=== PATIENT | female | born 1975 | race African-American/Black ===

== ENCOUNTER 2017-06-26 11:32 | Emergency (ER) | payer OTHER ==
[~2017-06-26] VITALS: Ht 172.7 cm; Wt 105.2 kg
[~2017-06-26 11:32] MED LIST: GLYB5TAB3 PO; INSU100C4 SQ; INSU100I13 SQ; INSU100I17 SQ; LISI10TA2 PO; METO-247 PO; PANT40TA3 PO; PHEN100C PO; PRED20TA PO
[2017-06-26] MEDS ORDERED: IPRATRPIUM/ALBUTEROL 0.5/2.5MG 3 ML NEBU. NEB ONE ×2 (11:45→12:15)
[2017-06-26 11:50] VITALS: BP 157/106
[2017-06-26] MEDS ORDERED: METO-313 PO (12:03)
[2017-06-26] MEDS ORDERED: PRED50TA PO (12:03)
[2017-06-26] MEDS ORDERED: LISI10TA2 PO (12:03)
[2017-06-26] MEDS ORDERED: CODE10LI PO (12:03)
--- NOTE | 2017-06-26 12:26 | PHYS DOC ---
Past Medical History Past Medical History: Anxiety, Asthma, Depression, Diabetes-Type I, High Cholesterol, Hypertension, Other Additional Past Medical Histor: PTSD, PANIC ATTACKS, vertigo Past Surgical History: Other Additional Past Surgical Histo: DNC Alcohol Use: None Drug Use: None Adult General Chief Complaint Chief Complaint: ASTHMA HPI HPI Patient is a 42 year old female who presents with 2-3 days of sinus congestion , cough, patient was working outside yesterday when she had a coughing episode with posttussive emesis. Patient had increased use of her albuterol inhaler. No fevers. Patient states she needs work note so she does not work outside. Review of Systems Review of Systems Constitutional: Denies fever or chills [] Eyes: Denies change in visual acuity, redness, or eye pain [] HENT: per history of present illness Respiratory: per history of present illness Cardiovascular: denies cp GI: Denies abdominal pain, nausea, vomiting, bloody stools or diarrhea [] : Denies dysuria or hematuria [] Musculoskeletal: Denies back pain or joint pain [] Integument: Denies rash or skin lesions [] Neurologic: Denies headache, focal weakness or sensory changes [] All other systems were reviewed and found to be within normal limits, except as documented in this note. Current Medications Current Medications Current Medications Medications (Trade) Dose Ordered Sig/Lucille Start Time Stop Time Status Last Admin Dose Admin Albuterol/ Ipratropium (Duoneb) 3 ml 1X ONCE 06/26/17 12:15 06/26/17 12:16 DC Allergies Allergies Allergies Coded Allergies Type Severity Reaction Last Updated Verified Penicillins Allergy Severe tongue swells, hives 02/07/15 Yes ibuprofen Allergy Severe 09/07/15 Yes aspirin Adverse Reaction Intermediate GI bleeding 07/11/14 Yes Physical Exam Physical Exam Constitutional: Well developed, well nourished, no acute distress, non-toxic appearance. obese HENT: Normocephalic, atraumatic, bilateral external ears normal, oropharynx moist, no oral exudates, nose normal. [] Eyes: PERRLA, EOMI, conjunctiva normal, no discharge. [] Neck: Normal range of motion, no tenderness, supple, no stridor. [] Cardiovascular:Heart rate regular with regular rhythm, no murmur [] Lungs & Thorax: Bilateral breath sounds clear to auscultation , moderate air movement, no wheeze Abdomen: Bowel sounds normal, soft, no tenderness, no masses, no pulsatile masses. [] Skin: Warm, dry, no erythema, no rash. [] Back: No tenderness, no CVA tenderness. [] Extremities: No tenderness, no cyanosis, no clubbing, ROM intact, no edema. [] Neurologic: Alert and oriented X 3, normal motor function, normal sensory function, no focal deficits noted. [] Psychologic: Affect normal, judgement normal, mood normal. [] Current Patient Data Vital Signs Vital Signs Date Time Temp Pulse Resp B/P (MAP) Pulse Ox O2 Delivery O2 Flow Rate FiO2 06/26/17 12:02 Room Air 06/26/17 11:50 98.5 84 20 99 98.5 EKG EKG [] Radiology/Procedures Radiology/Procedures [] Course & Med Decision Making Course & Med Decision Making Pertinent Labs and Imaging studies reviewed. (See chart for details) pt given duoneb tx. Pt's bp elevated, states she's out of meds, no f/u appt until 07/12. RX for prednisone 5 days, refill bp meds, codeine/guaifensin rx givens. Dragon Disclaimer Trufflson Disclaimer This electronic medical record was generated, in whole or in part, using a voice recognition dictation system. Departure Departure Impression: Primary Impression: Upper respiratory infection Additional Impression: Asthma Disposition: 01 HOME, SELF-CARE Condition: STABLE Patient Instructions: Upper Respiratory Infection, Adult, Form - Return To Work , Hypertension Scripts Codeine Phosphate/Guaifenesin (Guaifen-Codeine 200-20 mg/10Ml) 10 Ml Liquid 10 ML PO PRN Q6HRS Y for COUGH, #200 LIQUID Prov: MARYURI JIANG MD 06/26/17 Lisinopril (LISINOPRIL) 10 Mg Tablet 1 TAB PO DAILY, #20 TAB 0 Refills Prov: MARYURI JIANG MD 06/26/17 Metoprolol Tartrate (Lopressor) 100 Mg Tablet 100 MG PO BID, #30 TAB Prov: MARYURI JIANG MD 06/26/17 Prednisone (PREDNISONE) 50 Mg Tablet 1 TAB PO DAILY, #5 TAB Prov: MARYURI JIANG MD 06/26/17 Problem Qualifiers MARYURI JIANG MD Jun 26, 2017 12:26
== END 2017-06-26 12:15 | disposition home or self-care (01) ==
LOC: ER 11:32
DX: J06.9 Acute upper respiratory infection, unspecified (principal); J45.909 Unspecified asthma, uncomplicated; F41.0 Panic disorder [episodic paroxysmal anxiety]; F32.9 Major depressive disorder, single episode, unspecified; E10.9 Type 1 diabetes mellitus without complications; E78.00 Pure hypercholesterolemia, unspecified; I10 Essential (primary) hypertension; F43.10 Post-traumatic stress disorder, unspecified; Z88.0 Allergy status to penicillin; Z79.899 Other long term (current) drug therapy; Z88.6 Allergy status to analgesic agent
CPT/HCPCS: 94250; 94640; 99283; J7620

== ENCOUNTER 2017-12-04 02:19 | Emergency (ER) | payer OTHER | END 2017-12-04 03:50 | disposition home or self-care (01) | LOC: ER 02:19 | DX: S50.02XA Contusion of left elbow, initial encounter (principal); J45.909 Unspecified asthma, uncomplicated; I10 Essential (primary) hypertension; F43.10 Post-traumatic stress disorder, unspecified; E78.00 Pure hypercholesterolemia, unspecified; E10.9 Type 1 diabetes mellitus without complications; Z88.0 Allergy status to penicillin; Z88.6 Allergy status to analgesic agent; Z88.8 Allergy status to other drugs, medicaments and biological substances; W01.0XXA Fall on same level from slipping, tripping and stumbling without subsequent striking against object, initial encounter; Y93.89 Activity, other specified; Y99.8 Other external cause status; Y92.89 Other specified places as the place of occurrence of the external cause | CPT/HCPCS: 73080; 99284 ==

== ENCOUNTER 2018-04-28 14:09 | Emergency (ER) | payer OTHER ==
[~2018-04-28] VITALS: Ht 172.7 cm; Wt 101.2 kg
[~2018-04-28 14:09] MED LIST changes: +CODE10LI PO; +CYCL5TAB PO; +IBUP-1060 PO; +METO-313 PO; +NAPR-514 PO; +PENI500T PO; +PRED50TA PO
[2018-04-28 14:24] VITALS: BP 144/103
[2018-04-28] MEDS ORDERED: ALBUTEROL SULFATE 2.5 MG/3 ML NEBU. NEB ONE (14:45)
--- NOTE | 2018-04-28 15:11 | PHYS DOC ---
Past Medical History Past Medical History: No Pertinent History, Hypertension Additional Past Medical Histor: PTSD, PANIC ATTACKS, vertigo Past Surgical History: No Surgical History Additional Past Surgical Histo: DNC Alcohol Use: None Drug Use: None Adult General Chief Complaint Chief Complaint: HEADACHE HPI HPI Patient is a 43 year old female who presents to the ER with concerns of elevated blood pressure. PT states she was seen at in the ER one week ago and her metoprolol and lisinopril doses were increased. She has had a dull headache over her forehead all day today. She denies any vision changes, sensitivity to light, nausea, vomiting, or confusion. States she has had a cough , with nasal congestion, and a runny nose for the last week. She denies any fever or sore throat. Review of Systems Review of Systems Constitutional: Denies fever or chills [] Eyes: Denies change in visual acuity, redness, or eye pain [] HENT: reports nasal congestion, post nasal drainage, and scratchy, sore throat [ ] Respiratory: Denies shortness of breath; reports dry cough Cardiovascular: No additional information not addressed in HPI [] GI: Denies abdominal pain, nausea, vomiting, or diarrhea [] Musculoskeletal: Denies back pain or joint pain [] Integument: Denies rash or skin lesions [] Neurologic: Denies focal weakness or sensory changes; reports frontal headache described as pressure All other systems were reviewed and found to be within normal limits, except as documented in this note. Current Medications Current Medications Current Medications Medications (Trade) Dose Ordered Sig/Lucille Start Time Stop Time Status Last Admin Dose Admin Albuterol Sulfate (Ventolin Neb Soln) 2.5 mg 1X ONCE 04/28/18 14:45 04/28/18 14:46 DC 04/28/18 15:01 2.5 MG Allergies Allergies Allergies Coded Allergies Type Severity Reaction Last Updated Verified Penicillins Allergy Severe tongue swells, hives 02/07/15 Yes ibuprofen Allergy Severe 09/07/15 Yes aspirin Adverse Reaction Intermediate GI bleeding 07/11/14 Yes Physical Exam Physical Exam Constitutional: Well developed, well nourished, no acute distress, non-toxic appearance, obese. [] HENT: Normocephalic, atraumatic, bilateral external ears normal, bilateral TMs normal, oropharynx moist, no oral exudates, nasal turbinates erythematous and edematous, cobblestone appearance of posterior pharynx, no maxillary or frontal sinus tenderness Eyes: PERRLA, conjunctiva normal, no discharge. [] Neck: Normal range of motion, no tenderness, supple, no stridor. [] Cardiovascular:Heart rate regular rhythm, no murmur [] Lungs & Thorax: Bilateral breath sounds clear to auscultation, diminished in posterior bases bilat [] Skin: Warm, dry, no erythema, no rash. [] Extremities: No cyanosis, no clubbing, ROM intact, no edema. [] Neurologic: Alert and oriented X 3, normal motor function, normal sensory function, no focal deficits noted. [] Psychologic: Affect normal, judgement normal, mood normal. [] Current Patient Data Vital Signs Vital Signs Date Time Temp Pulse Resp B/P (MAP) Pulse Ox O2 Delivery O2 Flow Rate FiO2 04/28/18 15:02 99 Room Air 04/28/18 14:24 98.9 91 20 144/103 (117) 98.9 EKG EKG [] Radiology/Procedures Radiology/Procedures lung sounds improved and clear in all hodges after breathing tx[] Course & Med Decision Making Course & Med Decision Making Pertinent Labs and Imaging studies reviewed. (See chart for details) Dx: URI, allergic rhinitis, headache Prescriptions written for proair, tessalon perrles, and flonase. Follow up with PCP this week about blood pressure, continue meds as prescribed by [facility]. Avoid airway irritants. Patient verbalized an understanding of home care, medications , follow-up, and return to ED instructions and was in agreement with the plan of care. [] Dragon Disclaimer Dragon Disclaimer This electronic medical record was generated, in whole or in part, using a voice recognition dictation system. Departure Departure Impression: Primary Impression: Cough Additional Impressions: URI (upper respiratory infection) Allergic rhinitis Frontal headache Disposition: 01 HOME, SELF-CARE Condition: STABLE Referrals: ROCHELLE TREVINO MD (PCP) Patient Instructions: Headache and Allergies, Upper Respiratory Infection, Adult, [id number] Additional Instructions: Fill prescription(s) and use as directed. Cool mist humidifier in room at bedtime. Tylenol as needed for pain/fever. Increase clear fluids. Avoid triggers such as smoke, fragrance, dust, and pollen. Follow up with your primary care doctor as planned this week. Return to the ER if your symptoms worsen. Scripts Fluticasone Propionate (Flonase Allergy Relief) 9.9 Ml Sylva.susp 2 SPRAYS NS DAILY for 10 Days, #1 BOTTLE Prov: CHRIS POPE COMIC ILLUSTRATOR 04/28/18 Albuterol Sulfate (PROAIR HFA INHALER) 8.5 Gm Hfa.aer.ad 1-2 PUFF INH PRN Q6HRS PRN for SHORTNESS OF BREATH for 3 Days, #1 INHALER 1 Refill Prov: CHRIS POPE APRN 04/28/18 Benzonatate (TESSALON PERLE) 100 Mg Capsule 1 CAP PO TID, #21 CAP 0 Refills Prov: CHRIS POPE APRN 04/28/18 Problem Qualifiers Additional Impressions: URI (upper respiratory infection) URI type: unspecified URI Qualified Codes: J06.9 - Acute upper respiratory infection, unspecified Allergic rhinitis Allergic rhinitis trigger: unspecified Allergic rhinitis seasonality: unspecified Qualified Codes: J30.9 - Allergic rhinitis, unspecified CHRIS POPE COMIC ILLUSTRATOR Apr 28, 2018 15:11
[2018-04-28] MEDS ORDERED: FLUT9.9S NS (15:25)
[2018-04-28] MEDS ORDERED: BENZ100C PO (15:25)
[2018-04-28] MEDS ORDERED: PROAIR HFA8.5 GM INH (15:25)
== END 2018-04-28 15:35 | disposition home or self-care (01) ==
LOC: ER 14:09
DX: R51 Headache (principal); J30.9 Allergic rhinitis, unspecified; J06.9 Acute upper respiratory infection, unspecified; I10 Essential (primary) hypertension; F43.10 Post-traumatic stress disorder, unspecified; Z88.0 Allergy status to penicillin; Z88.6 Allergy status to analgesic agent; Z88.8 Allergy status to other drugs, medicaments and biological substances
CPT/HCPCS: 94640; 99283; J7613

== ENCOUNTER 2018-07-21 05:21 | Emergency (ER) | payer BC, OTHER ==
[~2018-07-21] VITALS: Ht 172.7 cm; Wt 97.5 kg
[~2018-07-21 05:21] MED LIST changes: +ALBU2.5V8 INH; +BENZ100C PO; +FLUT9.9S NS
[2018-07-21 05:28] VITALS: BP 130/80
[2018-07-21] MEDS ORDERED: AZIT250T6 PO (05:48)
[2018-07-21] MEDS ORDERED: PROM118S4 PO (05:48)
[2018-07-21] MEDS ORDERED: VENTOLIN HFA18 GM INH (05:48)
--- NOTE | 2018-07-21 05:49 | PHYS DOC ---
Past Medical History Past Medical History: No Pertinent History, Hypertension Additional Past Medical Histor: PTSD, PANIC ATTACKS, vertigo Past Surgical History: No Surgical History Additional Past Surgical Histo: DNC Alcohol Use: None Drug Use: None Adult General Chief Complaint Chief Complaint: Congestion HPI HPI Patient is a 43 year old female who presents with sore throat and cough. This started 3 days ago. Patient also notes a runny nose. MAXIMUM TEMPERATURE of 100 . No nausea or vomiting. Some discomfort when coughing. Patient was exposed to strep from her daughter. Nothing seems to make the symptoms better or worse.[] Review of Systems Review of Systems Constitutional: Denies fever or chills [] Eyes: Denies change in visual acuity, redness, or eye pain [] HENT: Denies nasal congestion or sore throat [] Respiratory: See history of present illness[] Cardiovascular: No additional information not addressed in HPI [] GI: Denies abdominal pain, nausea, vomiting, bloody stools or diarrhea [] : Denies dysuria or hematuria [] Musculoskeletal: Denies back pain or joint pain [] Integument: Denies rash or skin lesions [] Neurologic: Denies headache, focal weakness or sensory changes [] Endocrine: Denies polyuria or polydipsia [] All other systems were reviewed and found to be within normal limits, except as documented in this note. Allergies Allergies Allergies Coded Allergies Type Severity Reaction Last Updated Verified Penicillins Allergy Severe tongue swells, hives 02/07/15 Yes ibuprofen Allergy Severe 09/07/15 Yes aspirin Adverse Reaction Intermediate GI bleeding 07/11/14 Yes Physical Exam Physical Exam Constitutional: Well developed, well nourished, no acute distress, non-toxic appearance. [] HENT: Normocephalic, atraumatic, bilateral external ears normal, oropharynx moist, no oral exudates, enlarged tonsils, nose with clear rhinorrhea, no sinus tenderness to percussion. [] Eyes: PERRLA, EOMI, conjunctiva normal, no discharge. [] Neck: Normal range of motion, no tenderness, supple, no stridor. [] Cardiovascular:Heart rate regular rhythm, no murmur [] Lungs & Thorax: Bilateral breath sounds clear to auscultation [] Abdomen: Bowel sounds normal, soft, no tenderness, no masses, no pulsatile masses. [] Skin: Warm, dry, no erythema, no rash. [] Back: No tenderness, no CVA tenderness. [] Extremities: No tenderness, no cyanosis, no clubbing, ROM intact, no edema. [] Neurologic: Alert and oriented X 3, normal motor function, normal sensory function, no focal deficits noted. [] Psychologic: Affect normal, judgement normal, mood normal. [] EKG EKG [] Radiology/Procedures Radiology/Procedures [] Course & Med Decision Making Course & Med Decision Making Pertinent Labs and Imaging studies reviewed. (See chart for details) Medical decision making: There is no evidence of status asthmaticus, no evidence of peritonsillar abscess, nontoxic patient speaking in full sentences.[ ] Dragon Disclaimer Dragon Disclaimer This electronic medical record was generated, in whole or in part, using a voice recognition dictation system. Departure Departure Impression: Primary Impression: Pharyngitis Additional Impression: URI (upper respiratory infection) Disposition: HOME, SELF-CARE Condition: GOOD Referrals: ROCHELLE TREVINO MD (PCP) Follow-up in 2 days Patient Instructions: Upper Respiratory Infection, Adult, Viral and Bacterial Pharyngitis Additional Instructions: Drink plenty of fluids. Follow-up with your regular doctor in 2 days. Return to the ER if worsening discomfort, difficulty breathing, or any other concerns Scripts Promethazine/Phenyleph/Codeine (Promethazine Vc-Codeine Syrup) 118 Ml Syrup 5 ML PO Q6HRS PRN for COUGH, #118 ML Prov: PIETROALEXSHANE 07/21/18 Albuterol Sulfate (VENTOLIN HFA INHALER) 18 Gm Hfa.aer.ad 2 PUFF INH Q4HRS for FOR ASTHMA, #1 INHALER 0 Refills Prov: SHANE HOUGH DO 07/21/18 Azithromycin (AZITHROMYCIN TABLET) 250 Mg Tablet 1 PKG PO UD, #6 TAB Prov: SHANE HOUGH DO 07/21/18 Problem Qualifiers Primary Impression: Pharyngitis Pharyngitis/tonsillitis etiology: unspecified etiology Qualified Codes: J02.9 - Acute pharyngitis, unspecified Additional Impression: URI (upper respiratory infection) URI type: unspecified URI Qualified Codes: J06.9 - Acute upper respiratory infection, unspecified SHANE HOUGH DO Jul 21, 2018 05:49
== END 2018-07-21 06:00 | disposition home or self-care (01) ==
LOC: ER 05:21
DX: J02.9 Acute pharyngitis, unspecified (principal); I10 Essential (primary) hypertension; Z88.0 Allergy status to penicillin; Z88.6 Allergy status to analgesic agent
CPT/HCPCS: 99283

== ENCOUNTER 2018-11-11 18:24 | Emergency (ER) | payer BC, OTHER ==
[~2018-11-11] VITALS: Ht 172.7 cm; Wt 104.3 kg
[~2018-11-11 18:24] MED LIST changes: +AZIT250T6 PO; +PROM118S4 PO; +VENTOLIN HFA18 GM INH
[2018-11-11] MEDS ORDERED: ALBU2.5V8 INH (19:01)
[2018-11-11] MEDS ORDERED: AMLO10TA8 PO (19:01)
[2018-11-11] MEDS ORDERED: ASPI325T8 PO (19:01)
[2018-11-11] MEDS ORDERED: INSU100V13 SQ (19:01)
[2018-11-11] MEDS ORDERED: METF500T9 PO (19:01)
[2018-11-11] MEDS ORDERED: PNV1TABL25 PO (19:01)
[2018-11-11] MEDS ORDERED: ATOR10TA60 PO (19:01)
[2018-11-11] MEDS ORDERED: INSU100C4 SQ (19:01)
[2018-11-11] MEDS ORDERED: LISI10TA2 PO (19:01)
--- NOTE | 2018-11-11 19:31 | PHYS DOC ---
Past Medical History Past Medical History: Anemia, Anxiety, Asthma, Depression, Diabetes-Type II, High Cholesterol, Hypertension Additional Past Medical Histor: PANIC DISORDER Past Surgical History: Other Additional Past Surgical Histo: D&C 1995 Alcohol Use: Rarely Drug Use: None Adult General Chief Complaint Chief Complaint: CHEST PAIN HPI HPI Patient is a 43 year old female who presents with CP. Onset was 3:30 pm this afternoon. She took a deep breathe and felt a sudden substernal pain. She describes the pain as a dull, unusual sensation. Not sharp or aching. Pt states the pain ONLY LASTED TEN SECONDS AND THEN WENT AWAY. Currently she is not in pain. Non radiating. No timing associated with the pain and not worse with exertion. She states she became SOA at the time of onset and took a couple puffs of her inhalers, which helped. Denies recent illness, fever, chills, N/V/D, FULLER. Complains of a cough when laying down that started after her lisinopril dose was increased. Pt states she has been watching her diet and working out more recently. She has lost 18 pounds over the last 2 months. No hx of prior LA or heart issues. PMHx of asthma, HTN, DM. States she has had high anxiety and depression lately, for which she does not take any meds. Denies OCP or smoking. No hx of DVT/PE. [] Review of Systems Review of Systems Constitutional: Denies fever or chills [] Eyes: Denies change in visual acuity, redness, or eye pain [] HENT: Denies nasal congestion or sore throat [] Respiratory: Complains of cough and shortness of breath [] Cardiovascular: No additional information not addressed in HPI [] GI: Denies abdominal pain, nausea, vomiting, bloody stools or diarrhea [] : Denies dysuria or hematuria [] Musculoskeletal: Denies back pain or joint pain [] Integument: Denies rash or skin lesions [] Neurologic: Denies headache, focal weakness or sensory changes [] Endocrine: Denies polyuria or polydipsia [] All other systems were reviewed and found to be within normal limits, except as documented in this note. Allergies Allergies Allergies Coded Allergies Type Severity Reaction Last Updated Verified Penicillins Allergy Severe tongue swells, hives 02/07/15 Yes ibuprofen Allergy Severe 09/07/15 Yes aspirin Adverse Reaction Intermediate GI bleeding 07/11/14 Yes Physical Exam Physical Exam Constitutional: Well developed, well nourished, no acute distress, non-toxic appearance. [] HENT: Normocephalic, atraumatic, bilateral external ears normal, oropharynx moist, no oral exudates, nose normal. [] Eyes: PERRLA, EOMI, conjunctiva normal, no discharge. [] Neck: Normal range of motion, no tenderness, supple, no stridor. [] Cardiovascular:Heart rate regular rhythm, no murmur. Chest mildly tender to palpation. [] Lungs & Thorax: Bilateral breath sounds clear to auscultation [] Abdomen: Bowel sounds normal, soft, no tenderness, no masses, no pulsatile masses. [] Skin: Warm, dry, no erythema, no rash. [] Back: No tenderness, no CVA tenderness. [] Extremities: No tenderness, no cyanosis, no clubbing, ROM intact, no edema. [] Neurologic: Alert and oriented X 3, normal motor function, normal sensory function, no focal deficits noted. [] Psychologic: Affect normal, judgement normal, mood normal. [] Current Patient Data Vital Signs Vital Signs Date Time Temp Pulse Resp B/P (MAP) Pulse Ox O2 Delivery O2 Flow Rate FiO2 11/11/18 18:47 99.1 90 20 175/98 (123) 99 Room Air 99.1 Lab Values Laboratory Tests Test 11/11/18 19:25 White Blood Count 8.2 x10^3/uL (4.0-11.0) Red Blood Count 4.54 x10^6/uL (3.50-5.40) Hemoglobin 12.4 g/dL (12.0-15.5) Hematocrit 37.6 % (36.0-47.0) Mean Corpuscular Volume 83 fL (79-100) Mean Corpuscular Hemoglobin 27 pg (25-35) Mean Corpuscular Hemoglobin Concent 33 g/dL (31-37) Red Cell Distribution Width 14.1 % (11.5-14.5) Platelet Count 279 x10^3/uL (140-400) Neutrophils (%) (Auto) 64 % (31-73) Lymphocytes (%) (Auto) 28 % (24-48) Monocytes (%) (Auto) 7 % (0-9) Eosinophils (%) (Auto) 1 % (0-3) Basophils (%) (Auto) 1 % (0-3) Neutrophils # (Auto) 5.2 x10^3uL (1.8-7.7) Lymphocytes # (Auto) 2.3 x10^3/uL (1.0-4.8) Monocytes # (Auto) 0.6 x10^3/uL (0.0-1.1) Eosinophils # (Auto) 0.1 x10^3/uL (0.0-0.7) Basophils # (Auto) 0.0 x10^3/uL (0.0-0.2) Maternal Serum HCG Beta Subunit < 1 mIU/mL (0-5) Sodium Level 137 mmol/L (136-145) Potassium Level 3.6 mmol/L (3.5-5.1) Chloride Level 98 mmol/L (98-107) Carbon Dioxide Level 26 mmol/L (21-32) Anion Gap 13 (6-14) Blood Urea Nitrogen 10 mg/dL (7-20) Creatinine 0.8 mg/dL (0.6-1.0) Estimated GFR (Cockcroft-Gault) 95.2 BUN/Creatinine Ratio 13 (6-20) Glucose Level 252 mg/dL (70-99) H Calcium Level 9.8 mg/dL (8.5-10.1) Total Bilirubin 0.3 mg/dL (0.2-1.0) Aspartate Amino Transferase (AST) 15 U/L (15-37) Alanine Aminotransferase (ALT) 23 U/L (14-59) Alkaline Phosphatase 73 U/L (46-116) Troponin I Quantitative < 0.017 ng/mL (0.000-0.055) Total Protein 8.2 g/dL (6.4-8.2) Albumin 4.1 g/dL (3.4-5.0) Albumin/Globulin Ratio 1.0 (1.0-1.7) Laboratory Tests 11/11/18 19:25 Laboratory Tests 11/11/18 19:25 EKG EKG NSR RATE 94 NO ACUTE ISCHEMIC CHANGES NTOED NO STEMI NO ISCHEMIA INTERVALS NORMAL[] Radiology/Procedures Radiology/Procedures [] Impressions: CXR POSSIBLE BORDERLINE CRADIOMEGALY NO PTX Course & Med Decision Making Course & Med Decision Making Pertinent Labs and Imaging studies reviewed. (See chart for details) HEART SCORE IS H0 E 0 A 0 R 2 T 0 PT ONLY HAD PAIN FOR A FEW SECONDS AND THEN IT WENT AWAY PERC NEGATIVE NO OCP NO DVT SIGNS NO PREVIOUS HX OF THIS VITALS LOOK GOOD EXCEPT FOR ELEV BP (CUFF SMALL ON MY EVAL) REASSURANCE PROVIDED TROP NEG AT FOUR HOURS I THINK SHE CAN GO HOME, RETURN PREC AND PMD F/U DSICUSSED Patrick Disclaimer Patrick Disclaimer This electronic medical record was generated, in whole or in part, using a voice recognition dictation system. Departure Departure Impression: Primary Impression: Chest pain Disposition: HOME, SELF-CARE Condition: STABLE Referrals: ROCHELLE TREVINO MD (PCP) MANSOOR WALTON MD Nov 11, 2018 19:31
[2018-11-11 19:39] LABS: BASO % 1 % (0-3); EOS # 0.1 x10^3/uL (0.0-0.7); EOS % 1 % (0-3); HEMATOCRIT 37.6 % (36.0-47.0); HEMOGLOBIN 12.4 g/dL (12.0-15.5); LYMPH # 2.3 x10^3/uL (1.0-4.8); LYMPH % 28 % (24-48); MEAN CORPUSCULAR HEMOGLOBIN 27 pg (25-35); MEAN CORPUSCULAR HGB CONC 33 g/dL (31-37); MEAN CORPUSCULAR VOLUME 83 fL (79-100); MONO # 0.6 x10^3/uL (0.0-1.1); MONO % 7 % (0-9); NEUT # 5.2 x10^3uL (1.8-7.7); NEUT % 64 % (31-73); PLATELET COUNT 279 x10^3/uL (140-400); RED BLOOD COUNT 4.54 x10^6/uL (3.50-5.40); RED CELL DISTRIBUTION WIDTH 14.1 % (11.5-14.5); WHITE BLOOD COUNT 8.2 x10^3/uL (4.0-11.0)
--- NOTE | 2018-11-11 19:44 | RAD ---
PORTABLE CHEST 1V Clinical History: INTERMITTENT CHEST PAIN, LEFT BREAST PAIN X1 DAY. HX OF ANXIETY Technique: AP view of the chest was obtained at 11/11/2018 7:19 PM. Comparison: None. Findings: The heart is top normal limits in size. The pulmonary vasculature is normal. The lungs and pleural margins are clear. Impression: Borderline cardiomegaly. Comparison to a prior chest x-ray may be helpful. Electronically signed by: Javier Ma III, MD (11/11/2018 7:41 PM) [facility]
[2018-11-11 19:50] LABS: CALCIUM 9.8 mg/dL (8.5-10.1); CREATININE 0.8 mg/dL (0.6-1.0); GFR 95.2; POTASSIUM 3.6 mmol/L (3.5-5.1)
[2018-11-11 19:54] LABS: ALBUMIN 4.1 g/dL (3.4-5.0); TOTAL BILIRUBIN 0.3 mg/dL (0.2-1.0); TOTAL PROTEIN 8.2 g/dL (6.4-8.2)
[2018-11-11 20:00] VITALS: BP 143/87
--- NOTE | 2018-11-12 06:34 | EKG ---
[facility] [address] [place] [address] Test Date: 2018-11-11 Test Time: 18:37:59 Pat Name: CALLY ELIAS Department: Room: Gender: F Health Therapist: : 1975 Requested By: MANSOOR WALTON Order Number: [id number] Reading MD: Solomon Morales Measurements Intervals [place] Rate: 94 P: 33 WA: 182 QRS: 8 QRSD: 78 T: 26 QT: 362 QTc: 458 Interpretive Statements SINUS RHYTHM NONSPECIFIC ST-T WAVE CHANGES. Electronically Signed On 11-18-2018 11:18:39 CDT by Solomon Morales
== END 2018-11-11 20:25 | disposition home or self-care (01) ==
LOC: ER 18:24
DX: R07.2 Precordial pain (principal); I10 Essential (primary) hypertension; J45.909 Unspecified asthma, uncomplicated; F41.9 Anxiety disorder, unspecified; F32.9 Major depressive disorder, single episode, unspecified; E11.9 Type 2 diabetes mellitus without complications; E78.00 Pure hypercholesterolemia, unspecified; Z88.0 Allergy status to penicillin; Z88.6 Allergy status to analgesic agent; Z88.8 Allergy status to other drugs, medicaments and biological substances
CPT/HCPCS: 36415; 71045; 80053; 84484; 84702; 85025; 93005; 99285-25

== ENCOUNTER 2019-09-15 07:47 | Emergency (ER) | payer OTHER ==
[~2019-09-15] VITALS: Ht 172.7 cm; Wt 104.1 kg
[~2019-09-15 07:47] MED LIST changes: +AMLO10TA8 PO; +ASPI325T8 PO; +ATOR10TA60 PO; +INSU100V13 SQ; +METF500T11 PO; -PANT40TA3 PO; +PANT40TA77 PO; +PNV1TABL25 PO
[2019-09-15] MEDS ORDERED: CLIN300C8 PO (08:21)
[2019-09-15] MEDS ORDERED: HYDR-3164 PO (08:21)
--- NOTE | 2019-09-15 08:25 | PHYS DOC ---
Past Medical History Past Medical History: Anemia, Anxiety, Asthma, Depression, Diabetes-Type II, High Cholesterol, Hypertension Additional Past Medical Histor: PANIC DISORDER Past Surgical History: Other Additional Past Surgical Histo: D&C 1995 Smoking Status: Never Smoker Alcohol Use: Rarely Drug Use: None Adult General Chief Complaint Chief Complaint: ABSCESS HPI HPI Patient is a 44 year old [f with tooth problems bad teethlongstanding worse last night left uppermolar feels swollen no fever that she knows of. Review of Systems Review of Systems Constitutional: Denies fever or chills [] Cardiovascular: No additional information not addressed in HPI [] GI: Denies abdominal pain, nausea, vomiting, bloody stools or diarrhea [] All other systems were reviewed and found to be within normal limits, except as documented in this note. Allergies Allergies Allergies Coded Allergies Type Severity Reaction Last Updated Verified Penicillins Allergy Severe tongue swells, hives 02/07/15 Yes ibuprofen Allergy Severe 09/07/15 Yes aspirin Adverse Reaction Intermediate GI bleeding 07/11/14 Yes Physical Exam Physical Exam Constitutional: Well developed, well nourished, no acute distress, non-toxic appearance. [] HENT: Normocephalic, very poor dentition , black teeth throughout whole mouth. some swelling left upper molar with some facial ttp and mild swelling airway patent, no drainable abscess seen Eyes: PERRLA, EOMI, conjunctiva normal, no discharge. [] Neck: Normal range of motion, no tenderness, supple, no stridor. [] Extremities: No tenderness, no cyanosis, no clubbing, ROM intact, no edema. [] Neurologic: Alert and oriented X 3, normal motor function, normal sensory function, no focal deficits noted. [] Psychologic: Affect normal, judgement normal, mood normal. [] EKG EKG [] Radiology/Procedures Radiology/Procedures [] Course & Med Decision Making Course & Med Decision Making see nurses note comlpete vitals bp elevated pt knows this and need for f/u did not take bp meds this am given abx and pain control. advised f/u [facility], given phone numbers for low cost in the area Pertinent Labs and Imaging studies reviewed. (See chart for details) [] Dragon Disclaimer Dragon Disclaimer This electronic medical record was generated, in whole or in part, using a voice recognition dictation system. Departure Departure Impression: Primary Impression: Toothache Disposition: HOME, SELF-CARE Condition: STABLE Referrals: ROCHELLE TREVINO MD (PCP) Patient Instructions: Toothache-Brief Scripts Clindamycin Hcl (CLINDAMYCIN HCL) 300 Mg Capsule 1 CAP PO TID, #21 CAP Prov: MANSOOR WALTON MD 09/15/19 Hydrocodone/Apap 5-325 (NORCO 5-325 TABLET) 1 Each Tablet 1-2 EACH PO PRN Q6HRS PRN for PAIN, #15 as needed for pain Prov: MANSOOR WALTON MD 09/15/19 MANSOOR WALTON MD Sep 15, 2019 08:25
[2019-09-15 08:30] VITALS: BP 146/96
== END 2019-09-15 08:30 | disposition home or self-care (01) ==
LOC: ER 07:47
DX: K08.89 Other specified disorders of teeth and supporting structures (principal); J45.909 Unspecified asthma, uncomplicated; E11.9 Type 2 diabetes mellitus without complications; E78.00 Pure hypercholesterolemia, unspecified; I10 Essential (primary) hypertension; Z88.0 Allergy status to penicillin; Z88.6 Allergy status to analgesic agent; Z88.8 Allergy status to other drugs, medicaments and biological substances
CPT/HCPCS: 99283

== ENCOUNTER 2019-10-03 12:22 | Emergency (ER) | payer OTHER ==
[~2019-10-03] VITALS: Ht 172.7 cm; Wt 101.3 kg
[~2019-10-03 12:22] MED LIST changes: +CLIN300C8 PO; +HYDR-3164 PO
[2019-10-03 13:06] VITALS: BP 144/83
--- NOTE | 2019-10-04 22:16 | EKG ---
[facility] [address] [place] [id number] Test Date: 2019-10-03 Test Time: 12:58:57 Pat Name: CALLY ELIAS Department: Room: Gender: F [employer]: : 1975 Requested By: TARIK GUERRA Order Number: [id number] Reading MD: Measurements Intervals [place] Rate: 83 P: 38 NH: 184 QRS: 2 QRSD: 78 T: 29 QT: 380 QTc: 452 Interpretive Statements SINUS RHYTHM NON SPECIFIC T ABNORMALITY BORDERLINE ECG No previous ECG available for comparison
== END 2019-10-03 13:10 | disposition left against medical advice (07) ==
LOC: ER 12:22
DX: I10 Essential (primary) hypertension (principal)
CPT/HCPCS: 93005; 99283

== ENCOUNTER 2020-03-03 16:02 | Emergency (ER) | payer SELFPAY ==
[~2020-03-03] VITALS: Ht 170.2 cm; Wt 97.0 kg
[~2020-03-03 16:02] MED LIST changes: +METF-658 PO; -METF500T11 PO
[2020-03-03 18:00] VITALS: BP 120/83
--- NOTE | 2020-03-03 18:53 | PHYS DOC ---
Past Medical History Past Medical History: Anemia, Anxiety, Asthma, Depression, Diabetes-Type II, High Cholesterol, Hypertension Additional Past Medical Histor: PANIC DISORDER Past Surgical History: Other Additional Past Surgical Histo: D&C 1995 Smoking Status: Never Smoker Alcohol Use: None Drug Use: None General Adult EDM: Chief Complaint: MECHANICAL FALL HPI: HPI: 44-year-old female presents for a mechanical fall that happened prior to arrival. [place] the [place] and tripped on some broken floor that caused her t o fall directly onto the left side of her body. She states that she fell on her "left shoulder, left side, left knee ". She had trouble getting up herself. She denies that she hit her head but denies LOC or back pain or neck pain. She has full range of motion of her neck but reports limited range of motion in the left upper and lower extremity. The ambulance was called and she her left arm was put in a sling. She has not taken any medication for the pain and currently states that it is a 10 out of 10. She reports pain that radiates from her left lower back down to her knee. The pain is worse when she moves her upper extremity lower extremity and the pain is relieved in her back when she leans forward. Denies . LMP was beginning of the month. Review of Systems: Review of Systems: Constitutional: Denies fever or chills Eyes: Denies redness or eye pain HENT: Denies nasal congestion or sore throat Respiratory: Denies cough or shortness of breath Cardiovascular: Denies chest pain or palpitations GI: Denies abdominal pain, nausea, or vomiting : Denies dysuria or hematuria Musculoskeletal: Reports pain in the left upper extremity left lower extremity and left lower back. Integument: Denies rash or skin lesions Neurologic: Denies headache, focal weakness or sensory changes Complete systems were reviewed and found to be within normal limits, except as documented in this note. Current Medications: Current Medications Medications (Trade) Dose Ordered Sig/Lucille Start Time Stop Time Status Last Admin Dose Admin Acetaminophen (Tylenol) 500 mg 1X ONCE 03/03/20 19:00 03/03/20 19:01 Allergies: Allergies: Allergies Coded Allergies Type Severity Reaction Last Updated Verified Penicillins Allergy Severe tongue swells, hives 02/07/15 Yes ibuprofen Allergy Severe 09/07/15 Yes aspirin Adverse Reaction Intermediate GI bleeding 07/11/14 Yes Physical Exam: PE: Constitutional: Well developed, well nourished, no acute distress, non-toxic appearance HENT: Normocephalic, atraumatic Eyes: PERRL, EOMI, conjunctiva normal, no discharge Neck: Normal range of motion, no midline tenderness, supple Lungs & Thorax: No respiratory distress. Equal chest rising bilateral. Abdomen: Soft, no tenderness; pelvis stable and nontender Skin: Warm, dry, no erythema, no rash Back: No midline tenderness, left low lumbar paraspinal tenderness noted, left CVA tenderness Extremities: No tenderness, ROM restricted on left shoulder and elbow. No edema, pain also to radial head, no pain to left olecranon Neurologic: Alert and oriented X 3, normal motor function, normal sensory function, no focal deficits noted Psychologic: Affect normal, judgment normal Current Patient Data: Vital Signs: Vital Signs Date Time Temp Pulse Resp B/P (MAP) Pulse Ox O2 Delivery O2 Flow Rate FiO2 03/03/20 18:00 98.0 86 18 120/83 (95) 98 Room Air 98.0 EKG: EKG: [] Radiology/Procedures: Radiology/Procedures: PROCEDURE: SHOULDER 2+V LEFT EXAM: 3 Views Left Shoulder DATE: 03/03/2020 6:28 PM INDICATION: Reason: pain s/p fall / Spl. Instructions: / History: COMPARISON: No Prior FINDINGS: There is no evidence for acute fracture or dislocation. AC joint is congruent. Mild AC joint degenerative change. Humeral head is not high riding. IMPRESSION: 1. No acute fracture or dislocation. 2. Mild AC joint degenerative change. Electronically signed by: Julián Paulino MD (03/03/2020 7:08 PM) [facility] PROCED[facility]: RIBS LEFT AND PA CHEST Exam:Left ribs with PA chest Date: 03/03/2020 6:28 PM Comparison: No prior Indication: pain s/p fall Findings/ Impression: The heart is not enlarged. Mediastinal and hilar contours are normal. No focal parenchymal airspace opacity. No pleural effusion or pneumothorax. AP, Oblique and Spot images of the left ribs are negative for acute displaced rib fracture. Negative focal pleural elevation. Symmetrical intercostal spacing. It is of note that an acute non-displaced rib fracture can be in-apparent on initial post-trauma imaging.. Electronically signed by: Julián Paulino MD (03/03/2020 7:14 PM) [facility] PROCEDURE: LUMBAR SPINE 2-3V Exam: Lumbar spine 2 views INDICATION: Pain, status post fall TECHNIQUE: Frontal and lateral views of the lumbar spine with spot magnification view of the lumbosacral junction Comparisons: None FINDINGS: Vertebral body heights and alignment are well-maintained. Mild bilateral facet arthropathy is noted lower lumbar spine. Visualized soft tissues are unremarkable. IMPRESSION: Mild spondylotic change in the lumbar spine. Electronically signed by: Shane Fernandez MD (03/03/2020 8:09 PM) [id number] PROCEDURE: ELBOW LEFT 3V Exam: Left elbow 3 views INDICATION: Pain status post fall TECHNIQUE: Frontal, lateral and oblique views of the left elbow Comparisons: None FINDINGS: Bone mineralization is normal. No acute or healed fractures. Soft tissues are unremarkable. Joint spaces are well-maintained. IMPRESSION: No acute osseous abnormality. Electronically signed by: Shane Fernandez MD (03/03/2020 8:07 PM) [id number] Course & Med Decision Making: Course & Med Decision Making Patient was seen today in the ED for a mechanical fall where she fell on the left side of her body without any loss of consciousness. Patient neurologically intact. NO midline cervical spine tenderness. Pain was most significant in the left shoulder, left elbow, left lower back with radiation down leg. Pain addressed. ICE applied. XRs obtained without acute process. Elbow SUMEET bandage and arm sling applied for comfort. Patient advised to do shoulder circles 10x each direction at least 5 times to prevent frozen shoulder. Patient stable for discharge with outpatient follow-up with PCP/orthopedics. Orthopedic referral provided. Discussed findings and plan with patient, who acknowledges understanding and agreement. Patrick Disclaimer: Patrick Disclaimer: This electronic medical record was generated, in whole or in part, using a voice recognition dictation system. Splinting Splinting #1: Location: Left elbow Pre-Made Type: Sumeet bandage Pre-Proc Neuro Vasc Exam: normal Post-Proc Neuro Vasc Exam: normal, unchanged from pre-exam Splinting #2: Location: Left shoulder Pre-Made Type: Shoulder sling Pre-Proc Neuro Vasc Exam: normal Post-Proc Neuro Vasc Exam: normal, unchanged from pre-exam Departure Departure Impression: Primary Impression: Fall Qualified Codes: W19.XXXA - Unspecified fall, initial encounter Additional Impressions: Left shoulder strain Qualified Codes: S46.912A - Strain of unspecified muscle, fascia and tendon at shoulder and upper arm level, left arm, initial encounter Back pain Qualified Codes: M54.42 - Lumbago with sciatica, left side Elbow pain, left Sciatica Qualified Codes: M54.32 - Sciatica, left side Disposition: 01 HOME, SELF-CARE Condition: STABLE Referrals: ROCHELLE TREVINO MD (PCP) SAMIRA SUGGS MD, JOHN N MD Patient Instructions: Back Pain, Adult, [id number], Elastic Bandage and RICE, Elbow Contusion, [id number], Sciatica, [id number], Shoulder Pain, [id number] Scripts Orphenadrine Citrate (ORPHENADRINE CITRATE) 100 Mg Tablet.er 100 MG PO BID PRN for MUSCLE PAIN, #14 TAB Prov: CHARITO MADISON DO 03/03/20 Justicifation of Admission Dx: Justifications for Admission: Justification of Admission Dx: N/A CHARITO MADISON DO Mar 03, 2020 18:53
[2020-03-03] MEDS ORDERED: ACETAMINOPHEN 500 MG TABLET PO ONE (19:00)
--- NOTE | 2020-03-03 19:11 | RAD ---
EXAM: 3 Views Left Shoulder DATE: 03/03/2020 6:28 PM INDICATION: Reason: pain s/p fall / Spl. Instructions: / History: COMPARISON: No Prior FINDINGS: There is no evidence for acute fracture or dislocation. AC joint is congruent. Mild AC joint degenerative change. Humeral head is not high riding. IMPRESSION: 1. No acute fracture or dislocation. 2. Mild AC joint degenerative change. Electronically signed by: Julián Paulino MD (03/03/2020 7:08 PM) [facility]
--- NOTE | 2020-03-03 19:17 | RAD ---
Exam:Left ribs with PA chest Date: 03/03/2020 6:28 PM Comparison: No prior Indication: pain s/p fall Findings/ Impression: The heart is not enlarged. Mediastinal and hilar contours are normal. No focal parenchymal airspace opacity. No pleural effusion or pneumothorax. AP, Oblique and Spot images of the left ribs are negative for acute displaced rib fracture. Negative focal pleural elevation. Symmetrical intercostal spacing. It is of note that an acute non-displaced rib fracture can be in-apparent on initial post-trauma imaging.. Electronically signed by: Julián Paulino MD (03/03/2020 7:14 PM) [facility]
[2020-03-03] MEDS ORDERED: ORPH100T PO (19:41)
--- NOTE | 2020-03-03 20:10 | RAD ---
Exam: Left elbow 3 views INDICATION: Pain status post fall TECHNIQUE: Frontal, lateral and oblique views of the left elbow Comparisons: None FINDINGS: Bone mineralization is normal. No acute or healed fractures. Soft tissues are unremarkable. Joint spaces are well-maintained. IMPRESSION: No acute osseous abnormality. Electronically signed by: Shane Fernandez MD (03/03/2020 8:07 PM) [id number]
--- NOTE | 2020-03-03 20:12 | RAD ---
Exam: Lumbar spine 2 views INDICATION: Pain, status post fall TECHNIQUE: Frontal and lateral views of the lumbar spine with spot magnification view of the lumbosacral junction Comparisons: None FINDINGS: Vertebral body heights and alignment are well-maintained. Mild bilateral facet arthropathy is noted lower lumbar spine. Visualized soft tissues are unremarkable. IMPRESSION: Mild spondylotic change in the lumbar spine. Electronically signed by: Shane Fernandez MD (03/03/2020 8:09 PM) [id number]
== END 2020-03-03 19:50 | disposition home or self-care (01) ==
LOC: ER 16:02
DX: S46.912A Strain of unspecified muscle, fascia and tendon at shoulder and upper arm level, left arm, initial encounter (principal); M54.42 Lumbago with sciatica, left side; M25.522 Pain in left elbow; M25.562 Pain in left knee; J45.909 Unspecified asthma, uncomplicated; E11.9 Type 2 diabetes mellitus without complications; E78.00 Pure hypercholesterolemia, unspecified; I10 Essential (primary) hypertension; W01.0XXA Fall on same level from slipping, tripping and stumbling without subsequent striking against object, initial encounter; Y93.89 Activity, other specified; Y92.89 Other specified places as the place of occurrence of the external cause; Y99.8 Other external cause status
CPT/HCPCS: 71101; 72100; 73030; 73080; 99284; A4565